=== PATIENT | male | born 1970 | race Two or more races ===

== ENCOUNTER 2017-01-03 19:16 | Inpatient (IN) | payer MEDICAID ==
[~2017-01-03] VITALS: Ht 172.7 cm; Wt 93.5 kg
[~2017-01-03 19:16] MED LIST: HCTZ25T PO; LOPE1TAB9 PO
[2017-01-03 20:58] LABS: Basophils # (auto) 0 uL; Basophils % (auto) 0.3 % (0.0-2.0); Eosinophils # (auto) 0 uL; Eosinophils % (auto) 0.3 % (0.0-7.0); Hematocrit 38.6 % (41.0-53.0); Hemoglobin 13.4 g/dL (13.5-17.5); Lymphocytes # (auto) 0.7 uL; Lymphocytes % (auto) 12.3 % (10.0-50.0); Mean Corpuscular Hgb Conc. 34.8 g/dL (32.0-36.0); Mean Corpuscular Volume 91.9 fL (80.0-100.0); Mean Platelet Volume 7.8 fL (7.4-10.4); Monocytes # (auto) 0.4 uL; Monocytes % (auto) 6.5 % (0.0-12.0); Neutrophils # (auto) 4.4 uL; Neutrophils % (auto) 80.6 % (37.0-80.0); Platelet Count (auto) 113 10^3/uL (140-450); Red Cell Distribution Width 15.5 % (11.6-16.0); White Blood Cell 5.5 10^3/uL (4.4-10.8)
[2017-01-03 21:14] LABS: Partial Thromboplastin Time 27.8 sec (22.64-33.71); Prothrombin Time 12.1 sec (9.37-12.3)
[2017-01-03 21:18] LABS: BUN/Creatinine Ratio 11.3; Bilirubin, Total 1.6 mg/dL (0.2-1.0); Calcium 8.5 mg/dL (8.5-10.1); Magnesium 1.9 mg/dL (1.6-2.6); Potassium 3.5 mmol/L (3.5-5.1); Total Protein 7.2 g/dL (6.4-8.2)
[2017-01-03 21:18] LABS: Urine Bilirubin Negative (Negative); Urine Blood Negative /uL (Negative); Urine Color Yellow (Yellow); Urine Glucose Normal (Normal); Urine Ketone Negative (Negative); Urine Nitrite Negative (Negative); Urine RBC 4 /hpf (0 - 3); Urine Squamous Epithelial Cell FEW /hpf (<5); Urine Urobilinogen Normal (Negative); Urine pH 6.5 (5.0-8.0)
[2017-01-03 21:20] LABS: INR 1.17 (0.9-1.15)
[2017-01-03] MEDS ORDERED: ONDANSETRON HCL 4 MG/2 ML VIAL IV ONE (23:00)
[2017-01-03] MEDS ORDERED: HYDROmorphone HCL 2 MG/ML VL IV ONE (23:00)
[2017-01-03] MEDS ORDERED: SODIUM CHLORIDE 0.9% 1,000 ML IV ONE (23:00)
[2017-01-04] MEDS ORDERED: ONDANSETRON HCL 4 MG/2 ML VIAL IV ONE (01:15)
[2017-01-04] MEDS ORDERED: HYDROmorphone HCL 2 MG/ML VL IV ONE (01:15)
[2017-01-04] MEDS ORDERED: ONDANSETRON HCL 4 MG/2 ML VIAL IV PRN (03:15)
[2017-01-04] MEDS ORDERED: hydrALAZINE HCL 20 MG/ML VL IV PRN (03:15)
[2017-01-04] MEDS ORDERED: MORPHINE SULF INJ 2 MG/ML SYRINGE 1ML IV PRN (03:15)
[2017-01-04 03:50] VITALS: BP 161/96
[2017-01-04] MEDS: SODIUM CHLORIDE 0.9% 1,000 ML IV SCH ×2 (04:48→15:33)
[2017-01-04 05:02] VITALS: BP 161/96
[2017-01-04 09:00] VITALS: BP 155/92
[2017-01-04] MEDS: PANTOPRAZOLE SODIUM 40 MG/10 ML VIAL IV SCH (10:08)
[2017-01-04 12:40] VITALS: BP 158/93
[2017-01-04 16:21] VITALS: BP 149/97
[2017-01-04 21:59] VITALS: BP 138/78
[2017-01-05] MEDS: SODIUM CHLORIDE 0.9% 1,000 ML IV SCH (04:03)
[2017-01-05 05:42] VITALS: BP 146/90
[2017-01-05 06:33] LABS: Basophils # (auto) 0 uL; Basophils % (auto) 0.2 % (0.0-2.0); Eosinophils # (auto) 0 uL; Eosinophils % (auto) 0.8 % (0.0-7.0); Hematocrit 37.6 % (41.0-53.0); Hemoglobin 12.9 g/dL (13.5-17.5); Lymphocytes # (auto) 0.9 uL; Lymphocytes % (auto) 15.4 % (10.0-50.0); Mean Corpuscular Hemoglobin 31.8 pg (28.0-32.0); Mean Corpuscular Hgb Conc. 34.4 g/dL (32.0-36.0); Mean Corpuscular Volume 92.5 fL (80.0-100.0); Mean Platelet Volume 8.1 fL (7.4-10.4); Monocytes # (auto) 0.4 uL; Monocytes % (auto) 6.8 % (0.0-12.0); Neutrophils # (auto) 4.4 uL; Neutrophils % (auto) 76.8 % (37.0-80.0); Platelet Count (auto) 97 10^3/uL (140-450); Red Cell Distribution Width 15.7 % (11.6-16.0); White Blood Cell 5.7 10^3/uL (4.4-10.8)
[2017-01-05 07:09] LABS: Potassium 3.6 mmol/L (3.5-5.1)
[2017-01-05 07:14] LABS: Albumin 2.4 g/dL (3.4-5.0); BUN/Creatinine Ratio 14.5; Calcium 7.7 mg/dL (8.5-10.1)
[2017-01-05 07:16] LABS: Bilirubin, Total 1.7 mg/dL (0.2-1.0); Total Protein 6.1 g/dL (6.4-8.2)
[2017-01-05 09:00] VITALS: BP 153/92
[2017-01-05] MEDS: PANTOPRAZOLE SODIUM 40 MG/10 ML VIAL IV SCH (10:34)
[2017-01-05 13:00] VITALS: BP 147/90
== END 2017-01-05 14:45 | disposition home or self-care (01) | DRG 254 ==
LOC: ER 19:23 → OVERFLOW 19:24 → WEST WING 01-04 03:57
PROVIDERS: ADMIT Nurse Practitioner; ATTEND Internal Medicine
DX: K42.0 Umbilical hernia with obstruction, without gangrene (principal); E43 Unspecified severe protein-calorie malnutrition; K70.31 Alcoholic cirrhosis of liver with ascites; I10 Essential (primary) hypertension; F17.210 Nicotine dependence, cigarettes, uncomplicated; Z79.899 Other long term (current) drug therapy; Z82.49 Family history of ischemic heart disease and other diseases of the circulatory system; Z82.3 Family history of stroke; Z80.0 Family history of malignant neoplasm of digestive organs; Z68.31 Body mass index [BMI] 31.0-31.9, adult; Z72.89 Other problems related to lifestyle
CPT/HCPCS: 36415; 71010; 74176; 80053; 81001; 82150; 83690; 83735; 85025; 85610; 85730; 96361; 96374; 96375; 96376; C9113; J2405

== ENCOUNTER 2019-03-05 18:57 | Inpatient (IN) | payer MEDICAID ==
[~2019-03-05] VITALS: Ht 180.3 cm; Wt 93.4 kg
[~2019-03-05 18:57] MED LIST changes: +FUR20T PO; -HCTZ25T PO; -LOPE1TAB9 PO; +PANT40T PO; +SPIR25TA88 PO
[2019-03-05 19:25] LABS: Basophils # (auto) 0.1 uL; Basophils % (auto) 0.9 % (0.0-2.0); Eosinophils # (auto) 0.1 uL; Eosinophils % (auto) 1.8 % (0.0-7.0); Hematocrit 17.3 % (41.0-53.0); Lymphocytes # (auto) 1.2 uL; Lymphocytes % (auto) 18.4 % (10.0-50.0); Mean Corpuscular Hemoglobin 23.9 pg (28.0-32.0); Mean Corpuscular Volume 77.1 fL (80.0-100.0); Monocytes # (auto) 0.6 uL; Monocytes % (auto) 8.9 % (0.0-12.0); Neutrophils # (auto) 4.6 uL; Nucleated Red Blood Cells % 1.2 %; Platelet Count (auto) 159 10^3/uL (140-450); Red Blood Cells 2.24 10^6/uL (4.5-5.90); White Blood Cell 6.6 10^3/uL (4.4-10.8)
[2019-03-05 19:38] LABS: Hemoglobin 5.4 g/dL (13.5-17.5); Red Cell Distribution Width 27.9 % (11.8-14.3)
[2019-03-05 19:39] LABS: INR 1.13 (0.9-1.15); Partial Thromboplastin Time 23.6 sec (23.78-33.04)
[2019-03-05 19:48] LABS: Albumin 2.4 g/dL (3.4-5.0); Anion Gap 8 (5-15); Blood Urea Nitrogen 19 mg/dL (7-18); Calcium 7.4 mg/dL (8.5-10.1); Carbon Dioxide 24 mmol/L (21-32); Chloride 106 mmol/L (98-107); Glucose 145 mg/dL (74-106); Magnesium 1.9 mg/dL (1.6-2.6); Potassium 3.4 mmol/L (3.5-5.1); Sodium 138 mmol/L (136-145)
[2019-03-05 19:55] LABS: Alanine Aminotransferase 45 U/L (16-61); Alkaline Phosphatase 188 U/L (45-117); Aspartate Aminotransferase 53 U/L (15-37); BUN/Creatinine Ratio 19.6; Bilirubin, Total 0.4 mg/dL (0.2-1.0); GFR African American 105 mL/min; GFR Non-African American 87 mL/min; Total Protein 5.8 g/dL (6.4-8.2)
[2019-03-05] MEDS ORDERED: PANTOPRAZOLE 40 MG/10 ML VIAL INJ IV ONE (21:15)
[2019-03-05] MEDS ORDERED: PANTOPRAZOLE 80 MG in SODIUM CHL 0.9% 60 ML IV ONE (21:15)
[2019-03-06] VITALS (17 sets, daily range): BP systolic 101–127; BP diastolic 46–86
[2019-03-06] MEDS ORDERED: ONDANSETRON HCL 4 MG/2 ML VIAL IV PRN (05:30)
[2019-03-06] MEDS ORDERED: ACETAMINOPHEN 325 MG TAB PO PRN (05:30)
[2019-03-06] MEDS ORDERED: MORPHINE SULF INJ 2 MG/ML SYRINGE 1ML IV PRN (05:30)
[2019-03-06] MEDS ORDERED: OCTREOTIDE ACETATE 100 MCG in SODIUM CHL 0.9% 50 ML IV ONE ×2 (05:45→07:45)
[2019-03-06 07:50] LABS: BUN/Creatinine Ratio 32.4; Calcium 7.6 mg/dL (8.5-10.1)
[2019-03-06] MEDS: OCTREOTIDE ACETATE 500 MCG in SODIUM CHL 0.9% 99 ML IV SCH ×2 (08:15→17:00)
[2019-03-06 10:36] LABS: Basophils # (auto) 0 uL; Basophils % (auto) 0.8 % (0.0-2.0); Eosinophils # (auto) 0 uL; Lymphocytes # (auto) 0.6 uL; Monocytes # (auto) 0.4 uL; Nucleated Red Blood Cells % 0.1 %; Platelet Count (auto) 92 10^3/uL (140-450)
[2019-03-06 10:39] LABS: Hematocrit 19.4 % (41.0-53.0); Lymphocytes % (auto) 13.8 % (10.0-50.0); Mean Corpuscular Hemoglobin 26.6 pg (28.0-32.0); Mean Corpuscular Hgb Conc. 33.3 g/dL (32.0-36.0); Mean Corpuscular Volume 79.7 fL (80.0-100.0); Monocytes % (auto) 8.7 % (0.0-12.0); Neutrophils # (auto) 3.3 uL; Neutrophils % (auto) 75.7 % (37.0-80.0); Red Blood Cells 2.43 10^6/uL (4.5-5.90); White Blood Cell 4.4 10^3/uL (4.4-10.8)
[2019-03-06 10:42] LABS: Red Cell Distribution Width 24.4 % (11.8-14.3)
[2019-03-06 10:43] LABS: Hemoglobin 6.5 g/dL (13.5-17.5)
[2019-03-06 10:55] LABS: Urine Bacteria FEW /hpf (None Seen); Urine Blood 1+ /uL (Negative); Urine WBC 5 /hpf (0 - 3)
[2019-03-06] MEDS ORDERED: SODIUM CHLORIDE LOCK 10 ML ONE (12:31)
[2019-03-06] MEDS ORDERED: diphenhdrAMINE HCL 50 MG/1 ML VL ONE (12:31)
[2019-03-06] MEDS ORDERED: LIDOCAINE VISCOUS 2% 15ML UD ONE (12:31)
[2019-03-06] MEDS ORDERED: GOLYTELY 4L KIT PO ONE (12:45)
[2019-03-06] MEDS: fentaNYL CITRATE 100 MCG/2 ML VL ONE ×3 (13:19→13:27)
[2019-03-06] MEDS: MIDAZOLAM HCL 5 MG/ML-1ML VIAL ONE ×3 (13:19→13:27)
--- NOTE | 2019-03-06 14:23 | NUR ---
I called [facility] discharge nurse Dalila [phone] and left message asking where patient has been going for his portal HTN-awaiting return call. I did note that patient had appointment at [facility] 03/11 for EGD-I faxed higher level of care transfer to [facility] as well as [facility].
--- NOTE | 2019-03-06 14:40 | NUR ---
I spoke with [place] [employer]er Kate, she said that patient has been seen at [place] for his portal HTN.
--- NOTE | 2019-03-06 15:25 | NUR ---
I spoke with the [facility] transfer center, provided them with information for both Dr. Luu and the nurse's station, they are working on the transfer.
--- NOTE | 2019-03-06 15:30 | NUR ---
I spoke with Smitha at [facility] regarding the transfer to higher level of care, she will call me back soon with authorization numbers.
--- NOTE | 2019-03-06 15:38 | NUR ---
I received a call from Smitha at [facility]-auth number for [facility] is [id number], and the authorization for [facility] is [id number] called [facility] transfer center [phone] and provided them with the authorization number.
--- NOTE | 2019-03-06 17:02 | NUR ---
I placed [facility] on will-call pending transfer to [place].
[2019-03-06 21:20] LABS: Basophils # (auto) 0 uL; Hematocrit 20.6 % (41.0-53.0); Lymphocytes # (auto) 0.5 uL; Monocytes # (auto) 0.4 uL; Neutrophils # (auto) 2.4 uL; Nucleated Red Blood Cells % 0.1 %; White Blood Cell 3.4 10^3/uL (4.4-10.8)
[2019-03-06 21:22] LABS: Basophils % (auto) 0.8 % (0.0-2.0); Eosinophils # (auto) 0 uL; Eosinophils % (auto) 1.2 % (0.0-7.0); Lymphocytes % (auto) 15.2 % (10.0-50.0); Mean Corpuscular Hemoglobin 26.5 pg (28.0-32.0); Mean Corpuscular Hgb Conc. 32.8 g/dL (32.0-36.0); Mean Corpuscular Volume 80.6 fL (80.0-100.0); Monocytes % (auto) 12.1 % (0.0-12.0); Neutrophils % (auto) 70.7 % (37.0-80.0); Platelet Count (auto) 84 10^3/uL (140-450); Red Blood Cells 2.56 10^6/uL (4.5-5.90)
[2019-03-06 21:37] LABS: Hemoglobin 6.8 g/dL (13.5-17.5); Red Cell Distribution Width 22.7 % (11.8-14.3)
[2019-03-06] MEDS: PANTOPRAZOLE 40 MG TAB PO SCH (23:07)
[2019-03-06] MEDS ORDERED: FUROSEMIDE 40 MG/4 ML VIAL IV ONE (23:30)
[2019-03-07] VITALS (10 sets, daily range): BP systolic 15–134; BP diastolic 56–84
[2019-03-07 01:05] LABS: INR 1.19 (0.9-1.15); Prothrombin Time 12.6 sec (9.27-12.13)
[2019-03-07 01:10] LABS: % Iron Saturation 3.1 % (20-55)
[2019-03-07] MEDS: OCTREOTIDE ACETATE 500 MCG in SODIUM CHL 0.9% 99 ML IV SCH (01:47)
[2019-03-07 01:58] LABS: Ferritin 20.1 ng/mL (10-322); Folate (Folic Acid) 18.04 ng/mL (5.38-24)
[2019-03-07] MEDS ORDERED: GOLYTELY 4L KIT PO ONE (06:00)
[2019-03-07 07:27] LABS: Basophils # (auto) 0 uL; Basophils % (auto) 0.6 % (0.0-2.0); Eosinophils # (auto) 0.1 uL; Eosinophils % (auto) 1.7 % (0.0-7.0); Hematocrit 26.3 % (41.0-53.0); Hemoglobin 8.8 g/dL (13.5-17.5); Lymphocytes # (auto) 0.4 uL; Lymphocytes % (auto) 14.6 % (10.0-50.0); Mean Corpuscular Hemoglobin 27.5 pg (28.0-32.0); Mean Corpuscular Hgb Conc. 33.4 g/dL (32.0-36.0); Mean Corpuscular Volume 82.2 fL (80.0-100.0); Monocytes # (auto) 0.3 uL; Monocytes % (auto) 10.9 % (0.0-12.0); Neutrophils # (auto) 2.1 uL; Neutrophils % (auto) 72.2 % (37.0-80.0); Nucleated Red Blood Cells % 0.1 %; Platelet Count (auto) 80 10^3/uL (140-450); Red Cell Distribution Width 19.7 % (11.8-14.3)
[2019-03-07 07:42] LABS: Albumin 2.4 g/dL (3.4-5.0); Calcium 7.4 mg/dL (8.5-10.1); Potassium 3.8 mmol/L (3.5-5.1)
[2019-03-07 07:44] LABS: BUN/Creatinine Ratio 21.1
[2019-03-07 07:47] LABS: Bilirubin, Total 1.1 mg/dL (0.2-1.0); Total Protein 5.8 g/dL (6.4-8.2)
[2019-03-07 08:46] LABS: Hepatitis B Surface Antibody Positive
[2019-03-07 09:24] LABS: Hepatitis A Total Antibody Positive
[2019-03-07 09:48] LABS: Hepatitis B Core Total AB Negative
[2019-03-07 09:49] LABS: Hepatitis B Surface Antigen Negative (Negative); Hepatitis C Antibody Negative (Negative)
--- NOTE | 2019-03-07 09:58 | NUR ---
I placed a call to Dr. Luu to discuss the plan of care for this patient-I had received a call form [facility] [phone] asking if patient was still needing to be transferred at this time.
[2019-03-07] MEDS: PANTOPRAZOLE 40 MG TAB PO SCH (10:26)
--- NOTE | 2019-03-07 12:10 | NUR ---
Telemetry admit from ER SUMAYA VANG admitted to Telemetry unit after SBAR received. Patient oriented to LIZZIE hollis RN, unit, room, bed, and unit policies regarding patient care and visiting hours. Patient now on continuous telemetry monitoring, tele box #32 and telemetry reading on arrival to unit is sinus rythym @ 82 bpm. Patient weighed by bedscale and encouraged to call if they need something. Educated the patient on POC. All questions and concerns addressed, patient verbalized understanding. Call light is within reach and bed is in the lowest, locked position. Will round hourly and continue to monitor.
--- NOTE | 2019-03-07 13:21 | NUR ---
I called [facility] [phone] and spoke with Chelo to let her know that Dr. Luu does still want the patient transferred-she will speak with her MD.
--- NOTE | 2019-03-07 15:04 | NUR ---
[facility] AVAILABLE SPOKE WITH [facility] TRANSFER NURSE. STATED PATIENT WILL GO TO UNIT 4100, ROOM 11, BED 2. REPORT TO BE CALLED TO [phone]. ASKED FOR RETURN CALL WITH ESTIMATED [facility] CUTTER TIME [phone], OPTION 2, OPTION 3. WILL INFORM CASE MANAGEMENT.
--- NOTE | 2019-03-07 15:08 | NUR ---
LEFT MESSAGE WITH JUSTIN IN CASE MANAGEMENT INFORMED CASE MANAGEMENT OF PATIENT ACCEPTANCE TO UNIT 4100, ROOM 11, BED 2. ASKED FOR [facility] TRANSFER NURSE TO GET A RETURN CALL WITH TRANSLATOR DEAF TIME AT [phone]. AWAITING CALL BACK.
--- NOTE | 2019-03-07 15:10 | NUR ---
SPOKE WITH MD HINDS- UPDATED ON PATIENT TRANSFER ACCEPTANCE. NO NEW ORDERS.
--- NOTE | 2019-03-07 15:26 | NUR ---
Patient will be going to [facility] unit 4[address] room [address] Stanton, nurse to call report to [phone]-[facility] set to come at 1730 to transport, nurse Caridad made aware. I also let Chelo at the [facility] know that [facility] would be here at 1730 to transport.
--- NOTE | 2019-03-07 16:50 | NUR ---
REPORT CALLED INTO [facility] DOMINIK, [place].
--- NOTE | 2019-03-07 19:59 | NUR ---
pt denied any pain. no distress noted or expressed. pt transport to [facility] via [facility] arrived and pt will be transported via acls guidelines. pt confirmed to have all belongings, no questions from pt at this time. tele box retrieved, cleaned and returned to [facility]. pt stable at time of transfer.
== END 2019-03-07 19:57 | disposition short-term general hospital (02) | DRG 280 ==
LOC: ER 19:04 → TELE 03-06 03:16 → TELE-WESTW 03-07 12:19
PROVIDERS: ADMIT Nurse Practitioner Family; ATTEND Internal Medicine
PROC: 30233N1 Transfusion of Nonautologous Red Blood Cells into Peripheral Vein, Percutaneous Approach (ICD-10-PCS; 2019-03-06)
PROC: 06L38CZ Occlusion of Esophageal Vein with Extraluminal Device, Via Natural or Artificial Opening Endoscopic (ICD-10-PCS; principal; 2019-03-06 13:18)
DX: K70.30 Alcoholic cirrhosis of liver without ascites (principal); I85.11 Secondary esophageal varices with bleeding; J90 Pleural effusion, not elsewhere classified; K76.6 Portal hypertension; E44.0 Moderate protein-calorie malnutrition; I48.91 Unspecified atrial fibrillation; I50.9 Heart failure, unspecified; I11.0 Hypertensive heart disease with heart failure; D50.0 Iron deficiency anemia secondary to blood loss (chronic); F17.210 Nicotine dependence, cigarettes, uncomplicated; E78.5 Hyperlipidemia, unspecified; K21.9 Gastro-esophageal reflux disease without esophagitis; K31.89 Other diseases of stomach and duodenum; K52.9 Noninfective gastroenteritis and colitis, unspecified; Z90.49 Acquired absence of other specified parts of digestive tract; Z85.038 Personal history of other malignant neoplasm of large intestine; Z82.3 Family history of stroke; Z82.49 Family history of ischemic heart disease and other diseases of the circulatory system; Z68.28 Body mass index [BMI] 28.0-28.9, adult
CPT/HCPCS: 36415; 36430; 43244; 71045; 71046; 71250; 74176; 80048; 80053; 80320; 81001; 82140; 82607; 82728; 82746; 83540; 83550; 83605; 83615; 83735; 83880; 84443; 84484; 85025; 85045; 85610; 85730; 86704; 86706; 86708; 86803; 86850; 86900; 86901; 86920; 87340; 93005; 94761; 96365; 96366; A6257; C9113; G0378; J2250

== ENCOUNTER 2022-01-05 10:30 | Outpatient (CLI) | payer MEDICAID ==
[~2022-01-05 10:30] MED LIST changes: +SPIR25TA PO; -SPIR25TA88 PO
== END 2022-01-05 13:28 | disposition home or self-care (01) ==
LOC: XYW 10:30
DX: R18.8 Other ascites (principal); Z82.49 Family history of ischemic heart disease and other diseases of the circulatory system
CPT/HCPCS: 49083; 76700; 76942; 83986; 87205; 89051

== ENCOUNTER → 2022-02-17 | Outpatient (CLI) | payer MEDICAID ==
[~2022-02-17] MED LIST changes: +LIDOCAINE 2%HCL (LOCAL ANESTH.) INJ 10ml MDV ONE
== END | disposition home or self-care (01) ==
LOC: XYW 09:05
PROVIDERS: ATTEND Nurse Practitioner
DX: K70.31 Alcoholic cirrhosis of liver with ascites (principal); N17.9 Acute kidney failure, unspecified; F17.200 Nicotine dependence, unspecified, uncomplicated; Z80.0 Family history of malignant neoplasm of digestive organs; Z82.49 Family history of ischemic heart disease and other diseases of the circulatory system
CPT/HCPCS: 49083; 76700; C1729; C1769; J2001; 76942

== ENCOUNTER 2022-03-29 01:41 | Inpatient (IN) | payer MEDICAID ==
[~2022-03-29] VITALS: Ht 177.8 cm; Wt 75.1 kg
[~2022-03-29 01:41] MED LIST changes: +FERR27TA2 PO; +FURO40TA4 PO; -LIDOCAINE 2%HCL (LOCAL ANESTH.) INJ 10ml MDV ONE
[2022-03-29 03:10] LABS: Basophils # (auto) 0 10 ^3/uL (0-0.2); Eosinophils # (auto) 0 10 ^3/uL (0-0.8); Eosinophils % (auto) 0.6 % (0.0-7.0); Hematocrit 24.4 % (41.0-53.0); Lymphocytes # (auto) 0.4 10 ^3/uL (0.4-5.4); Lymphocytes % (auto) 8.7 % (10.0-50.0); Mean Corpuscular Hemoglobin 24.5 pg (28.0-32.0); Mean Corpuscular Hgb Conc. 32.9 g/dL (32.0-36.0); Mean Corpuscular Volume 74.5 fL (80.0-100.0); Monocytes # (auto) 0.5 10 ^3/uL (0-1.3); Monocytes % (auto) 9.7 % (0.0-12.0); Neutrophils # (auto) 3.8 10 ^3/uL (1.6-8.6); Nucleated Red Blood Cells % 0.1 %; Red Blood Cells 3.28 10^6/uL (4.5-5.90); White Blood Cell 4.7 10^3/uL (4.4-10.8)
[2022-03-29 03:11] LABS: Red Cell Distribution Width 23.8 % (11.8-14.3)
[2022-03-29 03:21] LABS: Albumin 2.8 g/dL (3.4-5.0); Calcium 8.1 mg/dL (8.5-10.1); Potassium 3.7 mmol/L (3.5-5.1)
[2022-03-29 03:27] LABS: Bilirubin, Total 1.1 mg/dL (0.2-1.0); Total Protein 6.3 g/dL (6.4-8.2)
[2022-03-29 03:39] LABS: BUN/Creatinine Ratio 23.2
[2022-03-29] MEDS ORDERED: DOCUSATE SOD 100 MG CAP PO PRN (12:45)
[2022-03-29] MEDS ORDERED: ONDANSETRON HCL 4 MG/2 ML VIAL IV PRN (12:45)
[2022-03-29] MEDS ORDERED: NITROGLYCERIN 0.4 MG SL TAB SL PRN (12:45)
[2022-03-29] MEDS ORDERED: MORPHINE SULFATE INJ 2 MG/ml SYRG IV PRN (12:45)
[2022-03-29] MEDS ORDERED: ACETAMINOPHEN 325 MG TAB PO PRN (12:45)
[2022-03-29 14:15] LABS: INR 1.11 (0.9-1.15); Partial Thromboplastin Time 25.4 sec (23.6-33.0)
[2022-03-30] MEDS: HYDROcodone-ACET 5/325MG TAB PO PRN (01:54)
[2022-03-30] MEDS ORDERED: ALBUMIN 25% 100 ML IV ONE (10:00)
[2022-03-30] MEDS ORDERED: ALBUMIN 25% 100 ML IV SCH ×2 (11:00→17:00)
[2022-03-30 12:19] LABS: Basophils # (auto) 0 10 ^3/uL (0-0.2); Eosinophils # (auto) 0 10 ^3/uL (0-0.8); Hematocrit 22.8 % (41.0-53.0); Lymphocytes # (auto) 0.3 10 ^3/uL (0.4-5.4); Monocytes # (auto) 0.2 10 ^3/uL (0-1.3); Monocytes % (auto) 8.7 % (0.0-12.0); Neutrophils # (auto) 1.9 10 ^3/uL (1.6-8.6)
[2022-03-30 12:23] LABS: Basophils % (auto) 1.3 % (0.0-2.0); Lymphocytes % (auto) 11.7 % (10.0-50.0); Mean Corpuscular Hemoglobin 25.7 pg (28.0-32.0); Mean Corpuscular Hgb Conc. 33.7 g/dL (32.0-36.0); Mean Corpuscular Volume 76.1 fL (80.0-100.0); Neutrophils % (auto) 77.3 % (37.0-80.0); Nucleated Red Blood Cells % 0.1 %; White Blood Cell 2.4 10^3/uL (4.4-10.8)
[2022-03-30 12:48] LABS: Hemoglobin 7.7 g/dL (13.5-17.5); Red Cell Distribution Width 23.6 % (11.8-14.3)
[2022-03-30 12:54] LABS: Albumin 2.6 g/dL (3.4-5.0); Potassium 3.2 mmol/L (3.5-5.1)
[2022-03-30 13:00] VITALS: BP 121/77
[2022-03-30 13:06] LABS: BUN/Creatinine Ratio 25.9; Bilirubin, Total 1.2 mg/dL (0.2-1.0); Total Protein 5.7 g/dL (6.4-8.2)
[2022-03-30 17:00] VITALS: BP 90/58
[2022-03-30 22:00] VITALS: BP 90/66
[2022-03-30] MEDS: FUROSEMIDE 40 MG TAB PO SCH (22:13)
[2022-03-31 05:00] VITALS: BP 94/59
[2022-03-31 07:10] LABS: Basophils # (auto) 0 10 ^3/uL (0-0.2); Basophils % (auto) 0.9 % (0.0-2.0); Eosinophils # (auto) 0 10 ^3/uL (0-0.8); Eosinophils % (auto) 0.8 % (0.0-7.0); Neutrophils # (auto) 1.8 10 ^3/uL (1.6-8.6); White Blood Cell 2.3 10^3/uL (4.4-10.8)
[2022-03-31 07:12] LABS: Hematocrit 21.2 % (41.0-53.0); Hemoglobin 7.2 g/dL (13.5-17.5); Lymphocytes # (auto) 0.3 10 ^3/uL (0.4-5.4); Lymphocytes % (auto) 11.2 % (10.0-50.0); Mean Corpuscular Hemoglobin 25.4 pg (28.0-32.0); Mean Corpuscular Hgb Conc. 33.8 g/dL (32.0-36.0); Monocytes # (auto) 0.2 10 ^3/uL (0-1.3); Monocytes % (auto) 10.6 % (0.0-12.0); Neutrophils % (auto) 76.5 % (37.0-80.0); Red Blood Cells 2.81 10^6/uL (4.5-5.90)
[2022-03-31 07:22] LABS: Mean Corpuscular Volume 75.2 fL (80.0-100.0); Red Cell Distribution Width 23.1 % (11.8-14.3)
[2022-03-31 07:41] LABS: BUN/Creatinine Ratio 26.3; Calcium 8.2 mg/dL (8.5-10.1); Potassium 3.5 mmol/L (3.5-5.1)
[2022-03-31 07:43] LABS: Bilirubin, Total 1.3 mg/dL (0.2-1.0); Total Protein 5.6 g/dL (6.4-8.2)
[2022-03-31 08:59] VITALS: BP 100/64
[2022-03-31] MEDS: SPIRONOLACTONE 25 MG TAB PO SCH (11:33)
[2022-03-31] MEDS: FUROSEMIDE 40 MG TAB PO SCH ×2 (11:33→21:42)
[2022-03-31] MEDS: PANTOPRAZOLE 40 MG TAB PO SCH (11:34)
[2022-03-31 12:53] VITALS: BP 93/63
[2022-03-31 16:34] VITALS: BP 94/68
[2022-03-31] MEDS: HYDROcodone-ACET 5/325MG TAB PO PRN (21:25)
[2022-03-31] MEDS: LACTULOSE 20Gm/30ML SOLN PO SCH (21:26)
[2022-03-31 22:00] VITALS: BP 100/68
[2022-04-01 05:00] VITALS: BP 105/72
[2022-04-01 09:00] VITALS: BP 112/77
[2022-04-01] MEDS: ALBUMIN 25% 50 ML IV SCH ×2 (09:00→14:37)
[2022-04-01] MEDS: LACTULOSE 20Gm/30ML SOLN PO SCH ×2 (10:18→22:01)
[2022-04-01] MEDS: SPIRONOLACTONE 25 MG TAB PO SCH (10:19)
[2022-04-01] MEDS: PANTOPRAZOLE 40 MG TAB PO SCH (10:19)
[2022-04-01 13:00] VITALS: BP 102/73
[2022-04-01 17:00] VITALS: BP 112/74
[2022-04-01] MEDS: BUMETANIDE 1 MG TAB PO SCH (18:00)
[2022-04-01 21:40] VITALS: BP 101/71
[2022-04-02] MEDS: ALBUMIN 25% 50 ML IV SCH ×3 (00:46→09:36)
[2022-04-02 05:00] VITALS: BP 99/71
[2022-04-02] MEDS: BUMETANIDE 1 MG TAB PO SCH ×2 (05:32→18:05)
[2022-04-02 06:29] LABS: Basophils # (auto) 0 10 ^3/uL (0-0.2); Basophils % (auto) 0.6 % (0.0-2.0); Eosinophils # (auto) 0 10 ^3/uL (0-0.8); Eosinophils % (auto) 0.6 % (0.0-7.0); Hematocrit 22.6 % (41.0-53.0); Hemoglobin 7.8 g/dL (13.5-17.5); Lymphocytes # (auto) 0.4 10 ^3/uL (0.4-5.4); Lymphocytes % (auto) 12.9 % (10.0-50.0); Mean Corpuscular Hemoglobin 25.8 pg (28.0-32.0); Mean Corpuscular Hgb Conc. 34.6 g/dL (32.0-36.0); Mean Corpuscular Volume 74.5 fL (80.0-100.0); Monocytes # (auto) 0.3 10 ^3/uL (0-1.3); Monocytes % (auto) 11.4 % (0.0-12.0); Neutrophils # (auto) 2.1 10 ^3/uL (1.6-8.6); Neutrophils % (auto) 74.5 % (37.0-80.0); Red Blood Cells 3.04 10^6/uL (4.5-5.90); White Blood Cell 2.9 10^3/uL (4.4-10.8)
[2022-04-02 06:41] LABS: Potassium 3.6 mmol/L (3.5-5.1)
[2022-04-02 06:43] LABS: BUN/Creatinine Ratio 21.7; Calcium 8.8 mg/dL (8.5-10.1)
[2022-04-02 09:00] VITALS: BP 100/74
[2022-04-02] MEDS: PANTOPRAZOLE 40 MG TAB PO SCH (09:35)
[2022-04-02] MEDS: LACTULOSE 20Gm/30ML SOLN PO SCH (09:35)
[2022-04-02] MEDS: SPIRONOLACTONE 25 MG TAB PO SCH (09:35)
[2022-04-02 13:00] VITALS: BP 99/69
[2022-04-02 17:00] VITALS: BP 113/82
== END 2022-04-02 18:52 | disposition left against medical advice (07) | DRG 280 ==
LOC: ER 01:41 → TELE 12:36 → TELE-WESTW 03-30 08:54
PROVIDERS: ADMIT Nurse Practitioner; ATTEND Nurse Practitioner
PROC: 0W9G3ZZ Drainage of Peritoneal Cavity, Percutaneous Approach (ICD-10-PCS; principal; 2022-03-30)
DX: K70.31 Alcoholic cirrhosis of liver with ascites (principal); K76.7 Hepatorenal syndrome; K72.90 Hepatic failure, unspecified without coma; N17.9 Acute kidney failure, unspecified; D61.818 Other pancytopenia; E44.0 Moderate protein-calorie malnutrition; N18.4 Chronic kidney disease, stage 4 (severe); D63.8 Anemia in other chronic diseases classified elsewhere; E87.1 Hypo-osmolality and hyponatremia; E87.6 Hypokalemia; Z53.29 Procedure and treatment not carried out because of patient's decision for other reasons; F17.210 Nicotine dependence, cigarettes, uncomplicated; Z20.822 Contact with and (suspected) exposure to COVID-19; E11.22 Type 2 diabetes mellitus with diabetic chronic kidney disease; I50.9 Heart failure, unspecified; Z68.23 Body mass index [BMI] 23.0-23.9, adult; Z79.899 Other long term (current) drug therapy; Z80.0 Family history of malignant neoplasm of digestive organs; Z82.3 Family history of stroke; Z82.49 Family history of ischemic heart disease and other diseases of the circulatory system
CPT/HCPCS: 36415; 76705; 76942; 80048; 80053; 82140; 83615; 83986; 85025; 85610; 85730; 87205; 89051; G0378; P9047

== ENCOUNTER 2022-04-13 13:17 | Inpatient (IN) | payer MEDICAID ==
[2022-04-13] VITALS (9 sets, daily range): BP systolic 108–121; BP diastolic 76–84
[~2022-04-13] VITALS: Ht 175.3 cm; Wt 64.1 kg
[~2022-04-13 13:17] MED LIST changes: -IOHEXOL 300 MG/ML 100ML BOTTLE IJ ONE; -LACT10SO3 PO; -LIDOCAINE 2%HCL (LOCAL ANESTH.) INJ 10ml MDV ONE; -RIFA550T PO
[2022-04-13] MEDS ORDERED: SODIUM CHLORIDE 0.9% 500 ML IVB ONE (13:45)
[2022-04-13] MEDS ORDERED: SODIUM CHLORIDE 0.9% 1,000 ML IV ONE (13:45)
[2022-04-13 14:19] LABS: Mean Corpuscular Hemoglobin 24.9 pg (28.0-32.0)
[2022-04-13 14:21] LABS: Hematocrit 19.9 % (41.0-53.0); Mean Corpuscular Hgb Conc. 33.5 g/dL (32.0-36.0); Mean Corpuscular Volume 74.5 fL (80.0-100.0); Red Blood Cells 2.67 10^6/uL (4.5-5.90); White Blood Cell 4.4 10^3/uL (4.4-10.8)
[2022-04-13 14:29] LABS: Hemoglobin 6.7 g/dL (13.5-17.5); Red Cell Distribution Width 20.8 % (11.8-14.3)
[2022-04-13 14:32] LABS: Band Neutrophils % (manual) 0; Basophils % (manual) 0 (0.0-2.0); Blast Cells 0; Eosinophils % (manual) 0 (0-7); Metamyelocytes % 0; Myelocytes % 0; Promyelocytes % 0; Reactive Lymphocytes 0
[2022-04-13 14:35] LABS: INR 1.18 (0.9-1.15); Partial Thromboplastin Time 25.2 sec (23.6-33.0)
[2022-04-13 15:23] LABS: Potassium 4.5 mmol/L (3.5-5.1); Sodium 125 mmol/L (136-145)
[2022-04-13 15:24] LABS: Alanine Aminotransferase 28 U/L (16-61); Albumin 3.6 g/dL (3.4-5.0); Alkaline Phosphatase 240 U/L (45-117); Anion Gap 13 (5-15); Aspartate Aminotransferase 23 U/L (15-37); BUN/Creatinine Ratio 21.9; Bilirubin, Total 1.3 mg/dL (0.2-1.0); Calcium 8.4 mg/dL (8.5-10.1); Carbon Dioxide 16 mmol/L (21-32); Chloride 96 mmol/L (98-107); GFR African American 13 mL/min; GFR Non-African American 11 mL/min; Glucose 131 mg/dL (74-106); Lipase 122 U/L (73-393); Magnesium 2.9 mg/dL (1.6-2.6); Total Protein 6.2 g/dL (6.4-8.2)
[2022-04-13 15:26] LABS: Blood Urea Nitrogen 127 mg/dL (7-18)
[2022-04-13] MEDS ORDERED: LACTULOSE 20Gm/30ML SOLN PO ONE (16:00)
[2022-04-13] MEDS ORDERED: DOCUSATE SOD 100 MG CAP PO PRN (16:15)
[2022-04-13] MEDS ORDERED: MORPHINE SULFATE INJ 2 MG/ml SYRG IV PRN ×2 (16:15→16:30)
[2022-04-13] MEDS ORDERED: NITROGLYCERIN 0.4 MG SL TAB SL PRN (16:30)
[2022-04-13 16:41] LABS: Urine Bacteria FEW /hpf (None Seen); Urine Blood Negative /uL (Negative); Urine Hyaline Cast FEW /lpf (0 - 2); Urine Specific Gravity 1.014 (1.001-1.035); Urine WBC 11 /hpf (0 - 3)
[2022-04-13 17:03] LABS: Lymphocytes % (manual) 12 (10.0-50.0); Monocytes % (manual) 4 (0-12)
[2022-04-13] MEDS ORDERED: FUROSEMIDE 40 MG TAB PO SCH (22:00)
[2022-04-13] MEDS: LACTULOSE 20Gm/30ML SOLN PO SCH (22:00)
[2022-04-14 05:00] VITALS: BP 115/73
[2022-04-14 05:54] LABS: Albumin 3.4 g/dL (3.4-5.0); BUN/Creatinine Ratio 23.3; Calcium 8.7 mg/dL (8.5-10.1); Potassium 4.3 mmol/L (3.5-5.1)
[2022-04-14 05:56] LABS: Hemoglobin 8.3 g/dL (13.5-17.5); Mean Corpuscular Hgb Conc. 33.5 g/dL (32.0-36.0); Red Blood Cells 3.19 10^6/uL (4.5-5.90)
[2022-04-14 06:00] LABS: Hematocrit 24.8 % (41.0-53.0); Mean Corpuscular Volume 77.6 fL (80.0-100.0); Red Cell Distribution Width 19.5 % (11.8-14.3); White Blood Cell 4.3 10^3/uL (4.4-10.8)
[2022-04-14 06:02] LABS: Bilirubin, Total 2.3 mg/dL (0.2-1.0); Total Protein 5.7 g/dL (6.4-8.2)
[2022-04-14 06:11] LABS: Basophils % (manual) 0 (0.0-2.0); Blast Cells 0; Metamyelocytes % 0; Myelocytes % 0; Promyelocytes % 0; Reactive Lymphocytes 0
[2022-04-14 07:54] LABS: Band Neutrophils % (manual) 3; Eosinophils % (manual) 1 (0-7); Lymphocytes % (manual) 10 (10.0-50.0); Monocytes % (manual) 8 (0-12)
[2022-04-14 09:00] VITALS: BP 108/76
[2022-04-14] MEDS: PANTOPRAZOLE 40 MG TAB PO SCH (09:06)
[2022-04-14] MEDS: FUROSEMIDE 20 MG TAB PO SCH (09:07)
[2022-04-14] MEDS: LACTULOSE 20Gm/30ML SOLN PO SCH ×2 (09:07→21:40)
[2022-04-14] MEDS: SPIRONOLACTONE 25 MG TAB PO SCH (09:08)
[2022-04-14] MEDS: FERROUS SULFATE 325mg EC TAB PO SCH (09:08)
[2022-04-14] MEDS: ONDANSETRON HCL 4 MG/2 ML VIAL IV PRN (12:37)
[2022-04-14 13:00] VITALS: BP 99/72
[2022-04-14 17:23] VITALS: BP 103/74
[2022-04-14] MEDS: HYDROcodone-ACET 5/325MG TAB PO PRN (21:51)
[2022-04-14 22:00] VITALS: BP 110/75
[2022-04-15] MEDS: ONDANSETRON HCL 4 MG/2 ML VIAL IV PRN (02:48)
[2022-04-15 05:00] VITALS: BP 115/82
[2022-04-15 06:29] LABS: BUN/Creatinine Ratio 22.9; Calcium 8.5 mg/dL (8.5-10.1); Potassium 4.3 mmol/L (3.5-5.1)
[2022-04-15 09:00] VITALS: BP 115/84
[2022-04-15] MEDS: FERROUS SULFATE 325mg EC TAB PO SCH (09:51)
[2022-04-15] MEDS: PANTOPRAZOLE 40 MG TAB PO SCH (09:51)
[2022-04-15] MEDS: FUROSEMIDE 20 MG TAB PO SCH (09:52)
[2022-04-15] MEDS: SPIRONOLACTONE 25 MG TAB PO SCH (09:52)
[2022-04-15] MEDS: LACTULOSE 20Gm/30ML SOLN PO SCH ×3 (12:00→22:16)
[2022-04-15] MEDS ORDERED: LIDOCAINE 2% (LOCAL ANESTH.) PF 5ml SDV ONE (12:56)
[2022-04-15 13:00] VITALS: BP 112/78
[2022-04-15] MEDS ORDERED: HEPARIN SODIUM (PORCINE) 5000 UNITS/ML 1ML VIAL ONE (13:26)
[2022-04-15] MEDS ORDERED: ALBUMIN 25% 100 ML IV ONE (14:15)
[2022-04-15] MEDS: ALBUMIN 25% 100 ML IV SCH ×2 (16:15→18:43)
[2022-04-15 17:00] VITALS: BP 118/78
[2022-04-15 21:56] VITALS: BP 111/74
[2022-04-15] MEDS: rifAXIMin 550 MG TAB PO SCH (22:16)
[2022-04-15] MEDS: HYDROcodone-ACET 5/325MG TAB PO PRN (22:16)
[2022-04-16 05:06] VITALS: BP 95/57
[2022-04-16] MEDS: LACTULOSE 20Gm/30ML SOLN PO SCH ×4 (05:49→21:19)
[2022-04-16 09:01] VITALS: BP 104/70
[2022-04-16] MEDS: FUROSEMIDE 20 MG TAB PO SCH (09:58)
[2022-04-16] MEDS: SPIRONOLACTONE 25 MG TAB PO SCH (09:59)
[2022-04-16] MEDS: PANTOPRAZOLE 40 MG TAB PO SCH (10:07)
[2022-04-16] MEDS: rifAXIMin 550 MG TAB PO SCH ×2 (10:07→21:16)
[2022-04-16] MEDS: FERROUS SULFATE 325mg EC TAB PO SCH (10:07)
[2022-04-16 13:00] VITALS: BP 107/73
[2022-04-16 17:00] VITALS: BP 91/69
[2022-04-16] MEDS: HYDROcodone-ACET 5/325MG TAB PO PRN (21:16)
[2022-04-16 22:00] VITALS: BP 97/69
[2022-04-17 05:00] VITALS: BP 97/70
[2022-04-17] MEDS: LACTULOSE 20Gm/30ML SOLN PO SCH ×4 (06:50→21:04)
[2022-04-17] MEDS: PANTOPRAZOLE 40 MG TAB PO SCH (08:49)
[2022-04-17] MEDS: rifAXIMin 550 MG TAB PO SCH ×2 (08:49→21:04)
[2022-04-17] MEDS: FUROSEMIDE 20 MG TAB PO SCH (08:50)
[2022-04-17] MEDS: SPIRONOLACTONE 25 MG TAB PO SCH (08:50)
[2022-04-17] MEDS: FERROUS SULFATE 325mg EC TAB PO SCH (08:50)
[2022-04-17 09:00] VITALS: BP 109/80
[2022-04-17 13:00] VITALS: BP_SYST 100; BP_SYST 141; BP_DIAS 81; BP_DIAS 97
[2022-04-17 13:12] LABS: Potassium 3.5 mmol/L (3.5-5.1)
[2022-04-17 13:13] LABS: BUN/Creatinine Ratio 15.9; Calcium 8.2 mg/dL (8.5-10.1)
[2022-04-17 17:00] VITALS: BP 150/101
[2022-04-17] MEDS: HYDROcodone-ACET 5/325MG TAB PO PRN (21:05)
[2022-04-17] MEDS: ONDANSETRON HCL 4 MG/2 ML VIAL IV PRN (21:13)
[2022-04-17 22:00] VITALS: BP 109/79
[2022-04-18 05:00] VITALS: BP 110/74
[2022-04-18] MEDS: LACTULOSE 20Gm/30ML SOLN PO SCH ×4 (05:35→21:21)
[2022-04-18] MEDS ORDERED: SODIUM CHL 0.9% 1000 ML BAG XX ONE (07:00)
[2022-04-18 09:00] VITALS: BP 106/76
[2022-04-18] MEDS: SPIRONOLACTONE 25 MG TAB PO SCH (10:00)
[2022-04-18] MEDS: FERROUS SULFATE 325mg EC TAB PO SCH (10:00)
[2022-04-18] MEDS: FUROSEMIDE 20 MG TAB PO SCH (10:00)
[2022-04-18] MEDS: PANTOPRAZOLE 40 MG TAB PO SCH (11:50)
[2022-04-18] MEDS: rifAXIMin 550 MG TAB PO SCH ×2 (11:50→21:21)
[2022-04-18 13:00] VITALS: BP 108/78
[2022-04-18 16:18] LABS: Albumin 3.5 g/dL (3.4-5.0); Bilirubin, Direct 1.3 mg/dL (0-0.2)
[2022-04-18 16:21] LABS: Bilirubin, Total 2.8 mg/dL (0.2-1.0)
[2022-04-18 17:00] VITALS: BP 115/81
[2022-04-18] MEDS: HYDROcodone-ACET 5/325MG TAB PO PRN (21:22)
[2022-04-18 22:00] VITALS: BP 116/71
[2022-04-19 04:53] VITALS: BP 96/65
[2022-04-19] MEDS: LACTULOSE 20Gm/30ML SOLN PO SCH ×4 (05:58→22:05)
[2022-04-19] MEDS: rifAXIMin 550 MG TAB PO SCH ×2 (08:46→22:05)
[2022-04-19] MEDS: FERROUS SULFATE 325mg EC TAB PO SCH (08:48)
[2022-04-19] MEDS: FUROSEMIDE 20 MG TAB PO SCH (08:48)
[2022-04-19] MEDS: PANTOPRAZOLE 40 MG TAB PO SCH (08:49)
[2022-04-19] MEDS: SPIRONOLACTONE 25 MG TAB PO SCH (08:49)
[2022-04-19 17:00] VITALS: BP 109/70
[2022-04-19] MEDS: ONDANSETRON HCL 4 MG/2 ML VIAL IV PRN (21:06)
[2022-04-19 22:00] VITALS: BP 121/86
[2022-04-19] MEDS: HYDROcodone-ACET 5/325MG TAB PO PRN (22:57)
[2022-04-20 05:00] VITALS: BP 117/80
[2022-04-20] MEDS: LACTULOSE 20Gm/30ML SOLN PO SCH ×4 (06:13→21:30)
[2022-04-20] MEDS ORDERED: SODIUM CHL 0.9% 1000 ML BAG XX ONE (07:00)
[2022-04-20 07:22] LABS: Hematocrit 29.9 % (41.0-53.0)
[2022-04-20 09:00] VITALS: BP 114/81
[2022-04-20] MEDS: FERROUS SULFATE 325mg EC TAB PO SCH (09:38)
[2022-04-20] MEDS: SPIRONOLACTONE 25 MG TAB PO SCH (09:39)
[2022-04-20] MEDS: PANTOPRAZOLE 40 MG TAB PO SCH (09:42)
[2022-04-20] MEDS: FUROSEMIDE 20 MG TAB PO SCH (09:42)
[2022-04-20] MEDS: rifAXIMin 550 MG TAB PO SCH ×2 (09:47→21:30)
[2022-04-20 11:53] LABS: Basophils # (auto) 0 10 ^3/uL (0-0.2); Basophils % (auto) 0.2 % (0.0-2.0); Eosinophils # (auto) 0 10 ^3/uL (0-0.8); Eosinophils % (auto) 0.1 % (0.0-7.0); Hematocrit 28.9 % (41.0-53.0); Hemoglobin 10.3 g/dL (13.5-17.5); Lymphocytes # (auto) 0.5 10 ^3/uL (0.4-5.4); Lymphocytes % (auto) 5.4 % (10.0-50.0); Mean Corpuscular Hemoglobin 27.8 pg (28.0-32.0); Mean Corpuscular Hgb Conc. 35.5 g/dL (32.0-36.0); Mean Corpuscular Volume 78.5 fL (80.0-100.0); Monocytes # (auto) 0.6 10 ^3/uL (0-1.3); Monocytes % (auto) 6.7 % (0.0-12.0); Neutrophils # (auto) 7.4 10 ^3/uL (1.6-8.6); Neutrophils % (auto) 87.6 % (37.0-80.0); Red Blood Cells 3.69 10^6/uL (4.5-5.90); Red Cell Distribution Width 19.9 % (11.8-14.3); White Blood Cell 8.5 10^3/uL (4.4-10.8)
[2022-04-20 11:54] LABS: INR 1.12 (0.9-1.15); Partial Thromboplastin Time 27.2 sec (23.6-33.0)
[2022-04-20 13:00] VITALS: BP 115/78
[2022-04-20 16:42] VITALS: BP 105/68
[2022-04-20] MEDS ORDERED: EPOETIN ALFA-EPBX 4,000 UNIT/ML VIAL SC ONE (21:00)
[2022-04-20 22:00] VITALS: BP_SYST 103; BP_DIAS 1; BP_DIAS 71
[2022-04-21 05:00] VITALS: BP 104/74
[2022-04-21] MEDS: LACTULOSE 20Gm/30ML SOLN PO SCH ×4 (05:38→21:22)
[2022-04-21 09:00] VITALS: BP 107/74
[2022-04-21 10:54] LABS: Hepatitis B Surface Antibody Negative (Negative)
[2022-04-21] MEDS: FERROUS SULFATE 325mg EC TAB PO SCH (11:13)
[2022-04-21] MEDS: rifAXIMin 550 MG TAB PO SCH ×2 (11:15→21:22)
[2022-04-21] MEDS: FUROSEMIDE 20 MG TAB PO SCH (11:17)
[2022-04-21] MEDS: PANTOPRAZOLE 40 MG TAB PO SCH (11:18)
[2022-04-21] MEDS: SPIRONOLACTONE 25 MG TAB PO SCH (11:19)
[2022-04-21 11:33] LABS: Hepatitis A Total Antibody Positive (Negative)
[2022-04-21] MEDS ORDERED: fentaNYL CITRATE 100 MCG/2 ML VL ONE (13:59)
[2022-04-21] MEDS ORDERED: HEPARIN SODIUM (PORCINE) 5000 UNITS/ML 1ML VIAL ONE (13:59)
[2022-04-21] MEDS ORDERED: MIDAZOLAM HCL 2MG/2ML 2ml VIAL (1mg/ml) ONE (13:59)
[2022-04-21] MEDS ORDERED: LIDOCAINE 2%HCL (LOCAL ANESTH.) INJ 10ml MDV ONE (14:15)
[2022-04-21 14:40] VITALS: BP 101/74
[2022-04-21 14:55] VITALS: BP 110/77
[2022-04-21 15:00] VITALS: BP 110/73
[2022-04-21 15:56] LABS: Hepatitis C Antibody Negative (Negative)
[2022-04-21] MEDS ORDERED: LACT10SO3 PO (19:40)
[2022-04-21] MEDS ORDERED: RIFA550T PO (19:40)
[2022-04-21 22:59] VITALS: BP 108/76
[2022-04-22 05:20] VITALS: BP 101/66
[2022-04-22] MEDS: LACTULOSE 20Gm/30ML SOLN PO SCH ×4 (06:00→21:16)
[2022-04-22] MEDS ORDERED: SODIUM CHL 0.9% 1000 ML BAG XX ONE (07:00)
[2022-04-22 08:27] LABS: Hemoglobin 10.6 g/dL (13.5-17.5)
[2022-04-22 08:29] LABS: Hematocrit 32.1 % (41.0-53.0)
[2022-04-22 08:37] LABS: % Iron Saturation 23.9 % (20-55)
[2022-04-22 09:38] VITALS: BP 111/76
[2022-04-22] MEDS: rifAXIMin 550 MG TAB PO SCH ×2 (11:01→21:16)
[2022-04-22] MEDS: FERROUS SULFATE 325mg EC TAB PO SCH (11:02)
[2022-04-22] MEDS: SPIRONOLACTONE 25 MG TAB PO SCH (11:02)
[2022-04-22] MEDS: PANTOPRAZOLE 40 MG TAB PO SCH (11:02)
[2022-04-22] MEDS: FUROSEMIDE 20 MG TAB PO SCH (11:03)
[2022-04-22 12:56] VITALS: BP 102/72
[2022-04-22 17:12] VITALS: BP 103/70
[2022-04-22] MEDS ORDERED: EPOETIN ALFA-EPBX 10,000 UNIT/1ML VIAL SC ONE (21:00)
[2022-04-22 22:00] VITALS: BP 112/74
[2022-04-23 05:00] VITALS: BP 100/66
[2022-04-23] MEDS: LACTULOSE 20Gm/30ML SOLN PO SCH ×4 (06:24→22:06)
[2022-04-23 09:00] VITALS: BP 113/77
[2022-04-23] MEDS: FERROUS SULFATE 325mg EC TAB PO SCH (10:00)
[2022-04-23] MEDS: SPIRONOLACTONE 25 MG TAB PO SCH (11:53)
[2022-04-23] MEDS: PANTOPRAZOLE 40 MG TAB PO SCH (11:54)
[2022-04-23] MEDS: FUROSEMIDE 20 MG TAB PO SCH (11:54)
[2022-04-23] MEDS: rifAXIMin 550 MG TAB PO SCH ×2 (11:55→22:06)
[2022-04-23 13:00] VITALS: BP 112/73
[2022-04-23 17:00] VITALS: BP 104/73
[2022-04-23 21:41] VITALS: BP 109/78
[2022-04-24 04:54] VITALS: BP 99/69
[2022-04-24] MEDS: LACTULOSE 20Gm/30ML SOLN PO SCH ×4 (05:56→21:58)
[2022-04-24 09:00] VITALS: BP 100/66
[2022-04-24] MEDS: PANTOPRAZOLE 40 MG TAB PO SCH (09:19)
[2022-04-24] MEDS: rifAXIMin 550 MG TAB PO SCH ×2 (09:19→21:58)
[2022-04-24] MEDS: FERROUS SULFATE 325mg EC TAB PO SCH (09:20)
[2022-04-24] MEDS: SPIRONOLACTONE 25 MG TAB PO SCH (09:20)
[2022-04-24] MEDS: FUROSEMIDE 20 MG TAB PO SCH (09:30)
[2022-04-24 13:00] VITALS: BP 101/70
[2022-04-24] MEDS: ONDANSETRON HCL 4 MG/2 ML VIAL IV PRN ×2 (16:25→21:58)
[2022-04-24 17:00] VITALS: BP 92/63
[2022-04-24 22:00] VITALS: BP 103/62
[2022-04-25 05:00] VITALS: BP 94/53
[2022-04-25] MEDS: ONDANSETRON HCL 4 MG/2 ML VIAL IV PRN (08:17)
[2022-04-25 08:48] VITALS: BP 86/57
[2022-04-25] MEDS: PANTOPRAZOLE 40 MG TAB PO SCH (09:34)
[2022-04-25] MEDS: rifAXIMin 550 MG TAB PO SCH (09:34)
[2022-04-25] MEDS: FERROUS SULFATE 325mg EC TAB PO SCH (09:34)
[2022-04-25] MEDS: SPIRONOLACTONE 25 MG TAB PO SCH (09:46)
[2022-04-25] MEDS: FUROSEMIDE 20 MG TAB PO SCH (10:00)
[2022-04-25] MEDS: LACTULOSE 20Gm/30ML SOLN PO SCH (10:00)
[2022-04-25] MEDS: ALBUMIN 25% 100 ML IV SCH ×2 (13:00→14:05)
[2022-04-25 13:24] VITALS: BP 87/57
[2022-04-25 17:00] VITALS: BP 87/54
== END 2022-04-25 18:38 | disposition home health service (06) | DRG 280 ==
LOC: ER 13:17 → TELE 16:18 → TELE-WESTW 21:58
PROVIDERS: ADMIT Nurse Practitioner; ATTEND Nurse Practitioner
PROC: 30233N1 Transfusion of Nonautologous Red Blood Cells into Peripheral Vein, Percutaneous Approach (ICD-10-PCS; 2022-04-13)
PROC: 0W9G3ZZ Drainage of Peritoneal Cavity, Percutaneous Approach (ICD-10-PCS; 2022-04-15)
PROC: 02HV33Z Insertion of Infusion Device into Superior Vena Cava, Percutaneous Approach (ICD-10-PCS; 2022-04-15)
PROC: 5A1D70Z Performance of Urinary Filtration, Intermittent, Less than 6 Hours Per Day (ICD-10-PCS; 2022-04-16)
PROC: 5A1D70Z Performance of Urinary Filtration, Intermittent, Less than 6 Hours Per Day (ICD-10-PCS; 2022-04-18)
PROC: 5A1D70Z Performance of Urinary Filtration, Intermittent, Less than 6 Hours Per Day (ICD-10-PCS; 2022-04-20)
PROC: 0JH63XZ Insertion of Tunneled Vascular Access Device into Chest Subcutaneous Tissue and Fascia, Percutaneous Approach (ICD-10-PCS; principal; 2022-04-21)
PROC: 0W9G3ZZ Drainage of Peritoneal Cavity, Percutaneous Approach (ICD-10-PCS; 2022-04-21)
PROC: 02H633Z Insertion of Infusion Device into Right Atrium, Percutaneous Approach (ICD-10-PCS; 2022-04-21)
PROC: B5181ZA Fluoroscopy of Superior Vena Cava using Low Osmolar Contrast, Guidance (ICD-10-PCS; 2022-04-21)
PROC: 5A1D70Z Performance of Urinary Filtration, Intermittent, Less than 6 Hours Per Day (ICD-10-PCS; 2022-04-22)
PROC: 5A1D70Z Performance of Urinary Filtration, Intermittent, Less than 6 Hours Per Day (ICD-10-PCS; 2022-04-25)
DX: K70.31 Alcoholic cirrhosis of liver with ascites (principal); K72.90 Hepatic failure, unspecified without coma; N17.9 Acute kidney failure, unspecified; E43 Unspecified severe protein-calorie malnutrition; D69.6 Thrombocytopenia, unspecified; N18.6 End stage renal disease; C22.8 Malignant neoplasm of liver, primary, unspecified as to type; D63.8 Anemia in other chronic diseases classified elsewhere; I95.9 Hypotension, unspecified; B19.20 Unspecified viral hepatitis C without hepatic coma; D49.0 Neoplasm of unspecified behavior of digestive system; E11.22 Type 2 diabetes mellitus with diabetic chronic kidney disease; K21.9 Gastro-esophageal reflux disease without esophagitis; R79.89 Other specified abnormal findings of blood chemistry; F17.210 Nicotine dependence, cigarettes, uncomplicated; I50.9 Heart failure, unspecified; Z20.822 Contact with and (suspected) exposure to COVID-19; Z80.0 Family history of malignant neoplasm of digestive organs; Z82.3 Family history of stroke; Z82.49 Family history of ischemic heart disease and other diseases of the circulatory system; Z83.3 Family history of diabetes mellitus; Z99.2 Dependence on renal dialysis; Z90.49 Acquired absence of other specified parts of digestive tract; Z79.84 Long term (current) use of oral hypoglycemic drugs
CPT/HCPCS: 36415; 36430; 36558; 71045; 74178; 74181; 76937; 76942; 77001; 80048; 80053; 80076; 81001; 82140; 82728; 83540; 83550; 83605; 83690; 83735; 84443; 85007; 85014; 85018; 85025; 85027; 85610; 85730; 86704; 86706; 86708; 86803; 86850; 86900; 86901; 86920; 87340; 90935; 93005; 96360; 99152; 99291; G0378; J1642; J2001; J2250; J2405; P9047

== ENCOUNTER → 2022-04-13 | Outpatient (CLI) | payer MEDICAID ==
[~2022-04-13] VITALS: Ht 175.3 cm; Wt 57.6 kg
[~2022-04-13] MED LIST changes: +IOHEXOL 300 MG/ML 100ML BOTTLE IJ ONE; +LACT10SO3 PO; +LIDOCAINE 2%HCL (LOCAL ANESTH.) INJ 10ml MDV ONE; +RIFA550T PO
[2022-04-13] MEDS: ALBUMIN 25% 100 ML IV SCH ×2 (13:00→14:00)
== END | disposition home or self-care (01) ==
LOC: XYW 10:57
PROVIDERS: ATTEND Internal Medicine
DX: R18.8 Other ascites (principal); Z82.49 Family history of ischemic heart disease and other diseases of the circulatory system; Z83.3 Family history of diabetes mellitus; Z83.42 Family history of familial hypercholesterolemia; Z80.0 Family history of malignant neoplasm of digestive organs; Z20.822 Contact with and (suspected) exposure to COVID-19
CPT/HCPCS: 36415; 49083; 76700; 83986; 87205; 88104; 88305; 88342; 89051; C1729; 76942; J2001

== ENCOUNTER → 2022-05-05 | Outpatient (CLI) | payer MEDICAID ==
[~2022-05-05] MED LIST changes: -FURO40TA4 PO; +LACT10SO3 PO; +MID10T PO; +RIFA550T PO
[2022-05-05 12:15] LABS: INR 1.22 (0.9-1.15); Partial Thromboplastin Time 26.8 sec (23.6-33.0)
== END | disposition home or self-care (01) ==
LOC: US 11:14
PROVIDERS: ATTEND Internal Medicine
DX: R18.8 Other ascites (principal); R14.0 Abdominal distension (gaseous); F17.200 Nicotine dependence, unspecified, uncomplicated; Z82.49 Family history of ischemic heart disease and other diseases of the circulatory system; Z83.3 Family history of diabetes mellitus; Z83.42 Family history of familial hypercholesterolemia
CPT/HCPCS: 36415; 49083; 76700; 83986; 85610; 85730; 87205; 89051; C1729; 76942

== ENCOUNTER 2022-05-08 21:38 | Inpatient (IN) | payer MEDICAID ==
[~2022-05-08] VITALS: Ht 170.2 cm; Wt 66.4 kg
[~2022-05-08 21:38] MED LIST changes: -MID10T PO
[2022-05-08 23:16] LABS: Basophils # (auto) 0.1 10 ^3/uL (0-0.2); Basophils % (auto) 1.9 % (0.0-2.0); Eosinophils # (auto) 0 10 ^3/uL (0-0.8); Eosinophils % (auto) 0.2 % (0.0-7.0); Hematocrit 32.6 % (41.0-53.0); Hemoglobin 10.6 g/dL (13.5-17.5); Lymphocytes # (auto) 0.3 10 ^3/uL (0.4-5.4); Lymphocytes % (auto) 5.1 % (10.0-50.0); Mean Corpuscular Hemoglobin 26.5 pg (28.0-32.0); Mean Corpuscular Hgb Conc. 32.6 g/dL (32.0-36.0); Mean Corpuscular Volume 81.3 fL (80.0-100.0); Monocytes # (auto) 0.3 10 ^3/uL (0-1.3); Neutrophils # (auto) 5.7 10 ^3/uL (1.6-8.6); Neutrophils % (auto) 87.8 % (37.0-80.0); Red Blood Cells 4.01 10^6/uL (4.5-5.90); Red Cell Distribution Width 22.3 % (11.8-14.3); White Blood Cell 6.5 10^3/uL (4.4-10.8)
[2022-05-08 23:30] LABS: INR 1.19 (0.9-1.15); Partial Thromboplastin Time 26.8 sec (23.6-33.0)
[2022-05-08 23:35] LABS: Albumin 2.5 g/dL (3.4-5.0); BUN/Creatinine Ratio 7.3; Potassium 3.3 mmol/L (3.5-5.1)
[2022-05-09 00:04] LABS: Bilirubin, Total 2.7 mg/dL (0.2-1.0); Total Protein 5.3 g/dL (6.4-8.2)
[2022-05-09] MEDS ORDERED: MID10T PO (00:52)
[2022-05-09] MEDS ORDERED: NITROGLYCERIN 0.4 MG SL TAB SL PRN (01:30)
[2022-05-09] MEDS ORDERED: ACETAMINOPHEN 325 MG TAB PO PRN (01:30)
[2022-05-09] MEDS ORDERED: ONDANSETRON HCL 4 MG/2 ML VIAL IV PRN (01:30)
[2022-05-09] MEDS ORDERED: ZOLPIDEM TARTRATE 5 MG TAB PO PRN (01:30)
[2022-05-09] MEDS ORDERED: LORazepam 0.5 MG TAB PO PRN (01:30)
[2022-05-09] MEDS: MORPHINE SULFATE INJ 2 MG/ml SYRG IV PRN (02:34)
[2022-05-09 05:06] LABS: Basophils # (auto) 0 10 ^3/uL (0-0.2); Basophils % (auto) 0.2 % (0.0-2.0); Eosinophils # (auto) 0 10 ^3/uL (0-0.8); Lymphocytes # (auto) 0.4 10 ^3/uL (0.4-5.4); Mean Corpuscular Hemoglobin 26.6 pg (28.0-32.0); Mean Corpuscular Volume 81.7 fL (80.0-100.0); Monocytes # (auto) 0.3 10 ^3/uL (0-1.3); White Blood Cell 6.2 10^3/uL (4.4-10.8)
[2022-05-09 05:08] LABS: Hematocrit 30.8 % (41.0-53.0); Lymphocytes % (auto) 6.6 % (10.0-50.0); Mean Corpuscular Hgb Conc. 32.5 g/dL (32.0-36.0); Monocytes % (auto) 5.5 % (0.0-12.0); Neutrophils # (auto) 5.4 10 ^3/uL (1.6-8.6); Neutrophils % (auto) 87.7 % (37.0-80.0); Red Blood Cells 3.76 10^6/uL (4.5-5.90)
[2022-05-09 05:22] LABS: Red Cell Distribution Width 22.4 % (11.8-14.3)
[2022-05-09 05:26] LABS: Calcium 7.7 mg/dL (8.5-10.1); Magnesium 2.4 mg/dL (1.6-2.6); Potassium 3.4 mmol/L (3.5-5.1)
[2022-05-09 05:29] LABS: BUN/Creatinine Ratio 7.2
[2022-05-09 08:38] LABS: Urine Bacteria MANY /hpf (None Seen); Urine Blood Negative /uL (Negative); Urine Specific Gravity 1.018 (1.001-1.035); Urine Sperm PRESENT /hpf (None Seen); Urine WBC 32 /hpf (0 - 3)
[2022-05-09] MEDS: CLOPIDOGREL BISULFATE 75 MG TAB PO SCH (10:00)
[2022-05-09] MEDS ORDERED: LISINOPRIL 10 MG TAB PO SCH (10:00)
[2022-05-09] MEDS ORDERED: METOPROLOL TARTRATE 25 MG TAB PO SCH (10:00)
[2022-05-09] MEDS: DOCUSATE SOD 100 MG CAP PO SCH (10:00)
[2022-05-09] MEDS ORDERED: ENOXAPARIN SOD 60 MG/0.6 ML SYRINGE SC SCH (10:00)
[2022-05-09] MEDS: ASPirin 81 mg TAB PO SCH (10:00)
[2022-05-09] MEDS: MIDODRINE HCL 10 MG TAB PO SCH (18:57)
[2022-05-09] MEDS: rifAXIMin 550 MG TAB PO SCH (22:00)
[2022-05-09] MEDS: ATORVASTATIN 20 MG TAB PO SCH (22:00)
[2022-05-09 23:09] VITALS: BP 95/56
[2022-05-10 05:00] VITALS: BP 83/54
[2022-05-10] MEDS: MIDODRINE HCL 10 MG TAB PO SCH ×3 (05:06→17:29)
[2022-05-10] MEDS ORDERED: SODIUM CHL 0.9% 1000 ML BAG XX ONE (07:00)
[2022-05-10 08:23] VITALS: BP 90/60
[2022-05-10] MEDS: ASPirin 81 mg TAB PO SCH (10:18)
[2022-05-10] MEDS: PANTOPRAZOLE 40 MG TAB PO SCH (10:19)
[2022-05-10] MEDS: DOCUSATE SOD 100 MG CAP PO SCH (10:19)
[2022-05-10] MEDS: CLOPIDOGREL BISULFATE 75 MG TAB PO SCH (10:19)
[2022-05-10] MEDS: rifAXIMin 550 MG TAB PO SCH ×2 (10:19→22:38)
[2022-05-10] MEDS ORDERED: REGADENOSON 0.4 MG/5 ML SYRG IV ONE ×2 (11:00→11:15)
[2022-05-10] MEDS: ALBUMIN 25% 100 ML IV SCH ×2 (12:50→14:03)
[2022-05-10 12:58] VITALS: BP 85/56
[2022-05-10 17:00] VITALS: BP 89/52
[2022-05-10] MEDS ORDERED: EPOETIN ALFA-EPBX 4,000 UNIT/ML VIAL SC ONE (21:00)
[2022-05-10 21:28] VITALS: BP 95/66
[2022-05-10] MEDS: ATORVASTATIN 20 MG TAB PO SCH (22:38)
[2022-05-11 04:24] VITALS: BP 88/58
[2022-05-11] MEDS: MIDODRINE HCL 10 MG TAB PO SCH ×3 (05:38→17:11)
[2022-05-11 09:00] VITALS: BP 84/55
[2022-05-11] MEDS: ASPirin 81 mg TAB PO SCH (09:13)
[2022-05-11] MEDS: CLOPIDOGREL BISULFATE 75 MG TAB PO SCH (09:14)
[2022-05-11] MEDS: PANTOPRAZOLE 40 MG TAB PO SCH (09:14)
[2022-05-11] MEDS: DOCUSATE SOD 100 MG CAP PO SCH (09:14)
[2022-05-11] MEDS: rifAXIMin 550 MG TAB PO SCH ×2 (09:14→22:03)
[2022-05-11 12:12] LABS: Basophils # (auto) 0 10 ^3/uL (0-0.2); Eosinophils # (auto) 0 10 ^3/uL (0-0.8); Eosinophils % (auto) 0.1 % (0.0-7.0); Lymphocytes # (auto) 0.3 10 ^3/uL (0.4-5.4); Monocytes # (auto) 0.3 10 ^3/uL (0-1.3)
[2022-05-11 12:15] LABS: Basophils % (auto) 0.2 % (0.0-2.0); Hematocrit 27.2 % (41.0-53.0); Lymphocytes % (auto) 5.8 % (10.0-50.0); Mean Corpuscular Hemoglobin 27.1 pg (28.0-32.0); Mean Corpuscular Hgb Conc. 33.1 g/dL (32.0-36.0); Mean Corpuscular Volume 81.7 fL (80.0-100.0); Monocytes % (auto) 6.4 % (0.0-12.0); Neutrophils # (auto) 4.1 10 ^3/uL (1.6-8.6); Neutrophils % (auto) 87.5 % (37.0-80.0); Red Blood Cells 3.33 10^6/uL (4.5-5.90); White Blood Cell 4.6 10^3/uL (4.4-10.8)
[2022-05-11 12:28] LABS: Red Cell Distribution Width 22.6 % (11.8-14.3)
[2022-05-11 12:52] LABS: INR 1.29 (0.9-1.15); Partial Thromboplastin Time 29.5 sec (23.6-33.0)
[2022-05-11 13:00] VITALS: BP 86/51
[2022-05-11 16:58] VITALS: BP 86/58
[2022-05-11 22:00] VITALS: BP 95/65
[2022-05-11] MEDS: ATORVASTATIN 20 MG TAB PO SCH (22:03)
[2022-05-12 05:00] VITALS: BP 79/50
[2022-05-12] MEDS: MIDODRINE HCL 10 MG TAB PO SCH ×3 (05:59→17:23)
[2022-05-12 06:16] LABS: Basophils # (auto) 0 10 ^3/uL (0-0.2); Eosinophils # (auto) 0 10 ^3/uL (0-0.8); Hemoglobin 9.4 g/dL (13.5-17.5); Lymphocytes # (auto) 0.3 10 ^3/uL (0.4-5.4); Monocytes # (auto) 0.3 10 ^3/uL (0-1.3); Neutrophils # (auto) 4.1 10 ^3/uL (1.6-8.6); Neutrophils % (auto) 87.1 % (37.0-80.0); White Blood Cell 4.7 10^3/uL (4.4-10.8)
[2022-05-12 06:17] LABS: Basophils % (auto) 0.2 % (0.0-2.0); Eosinophils % (auto) 0.1 % (0.0-7.0); Mean Corpuscular Hemoglobin 27.5 pg (28.0-32.0); Mean Corpuscular Hgb Conc. 33.5 g/dL (32.0-36.0); Mean Corpuscular Volume 82.1 fL (80.0-100.0); Monocytes % (auto) 6.6 % (0.0-12.0); Red Blood Cells 3.41 10^6/uL (4.5-5.90)
[2022-05-12 06:23] LABS: Calcium 7.8 mg/dL (8.5-10.1); Potassium 3.9 mmol/L (3.5-5.1)
[2022-05-12 06:27] LABS: BUN/Creatinine Ratio 7.2
[2022-05-12 06:40] LABS: Red Cell Distribution Width 23.5 % (11.8-14.3)
[2022-05-12] MEDS: ASPirin 81 mg TAB PO SCH (08:55)
[2022-05-12] MEDS: CLOPIDOGREL BISULFATE 75 MG TAB PO SCH (08:55)
[2022-05-12] MEDS: rifAXIMin 550 MG TAB PO SCH ×2 (08:55→21:25)
[2022-05-12] MEDS: PANTOPRAZOLE 40 MG TAB PO SCH (08:56)
[2022-05-12] MEDS: DOCUSATE SOD 100 MG CAP PO SCH (08:56)
[2022-05-12 09:08] VITALS: BP 98/64
[2022-05-12 12:20] VITALS: BP 90/69
[2022-05-12 16:42] VITALS: BP 97/57
[2022-05-12] MEDS: ATORVASTATIN 20 MG TAB PO SCH (21:26)
[2022-05-12 22:00] VITALS: BP 100/70
[2022-05-12] MEDS: MORPHINE SULFATE INJ 2 MG/ml SYRG IV PRN (23:27)
[2022-05-13 05:00] VITALS: BP 89/57
[2022-05-13 05:12] LABS: Basophils # (auto) 0 10 ^3/uL (0-0.2); Basophils % (auto) 0.2 % (0.0-2.0); Eosinophils # (auto) 0 10 ^3/uL (0-0.8); Eosinophils % (auto) 0.3 % (0.0-7.0); Hematocrit 29.7 % (41.0-53.0); Hemoglobin 9.9 g/dL (13.5-17.5); Lymphocytes # (auto) 0.3 10 ^3/uL (0.4-5.4); Mean Corpuscular Hemoglobin 27.2 pg (28.0-32.0); Mean Corpuscular Hgb Conc. 33.4 g/dL (32.0-36.0); Mean Corpuscular Volume 81.3 fL (80.0-100.0); Monocytes # (auto) 0.2 10 ^3/uL (0-1.3); Monocytes % (auto) 8.5 % (0.0-12.0); Neutrophils # (auto) 2.2 10 ^3/uL (1.6-8.6); Nucleated Red Blood Cells % 0.4 %; Red Blood Cells 3.66 10^6/uL (4.5-5.90); White Blood Cell 2.8 10^3/uL (4.4-10.8)
[2022-05-13 05:24] LABS: Calcium 7.8 mg/dL (8.5-10.1); Potassium 4.2 mmol/L (3.5-5.1)
[2022-05-13 05:26] LABS: BUN/Creatinine Ratio 7.3
[2022-05-13] MEDS: MIDODRINE HCL 10 MG TAB PO SCH ×3 (05:37→18:14)
[2022-05-13] MEDS ORDERED: SODIUM CHL 0.9% 1000 ML BAG XX ONE (07:00)
[2022-05-13 09:00] VITALS: BP 84/48
[2022-05-13] MEDS ORDERED: ONDA-144 PO (10:18)
[2022-05-13] MEDS: PANTOPRAZOLE 40 MG TAB PO SCH (10:41)
[2022-05-13] MEDS: DOCUSATE SOD 100 MG CAP PO SCH (10:41)
[2022-05-13] MEDS: CLOPIDOGREL BISULFATE 75 MG TAB PO SCH (10:41)
[2022-05-13] MEDS: rifAXIMin 550 MG TAB PO SCH (10:41)
[2022-05-13] MEDS: ASPirin 81 mg TAB PO SCH (10:41)
[2022-05-13] MEDS ORDERED: LIDOCAINE 2%HCL (LOCAL ANESTH.) INJ 10ml MDV ONE (10:49)
[2022-05-13] MEDS ORDERED: ALBUMIN 25% 100 ML IV ONE (11:14)
[2022-05-13 12:46] VITALS: BP 74/44
[2022-05-13] MEDS ORDERED: CLOP75TA70 PO (16:54)
[2022-05-13] MEDS ORDERED: ATOR20TA50 PO (16:54)
[2022-05-13] MEDS ORDERED: ASPI-325 PO (16:54)
[2022-05-13 17:00] VITALS: BP 86/57
[2022-05-13 17:33] VITALS: BP 86/57
== END 2022-05-13 20:38 | disposition hospice, home (50) | DRG 279 ==
LOC: ER 21:38 → EDUNIT# 21:38 → EDBD 21:38 → TELE 05-09 01:17 → TELE-WESTW 05-09 21:40
PROVIDERS: ADMIT Hospitalist; ATTEND Internal Medicine
PROC: 5A1D70Z Performance of Urinary Filtration, Intermittent, Less than 6 Hours Per Day (ICD-10-PCS; principal; 2022-05-10)
DX: K72.00 Acute and subacute hepatic failure without coma (principal); E43 Unspecified severe protein-calorie malnutrition; N18.6 End stage renal disease; D69.6 Thrombocytopenia, unspecified; I95.89 Other hypotension; R18.8 Other ascites; E87.1 Hypo-osmolality and hyponatremia; D63.1 Anemia in chronic kidney disease; R16.0 Hepatomegaly, not elsewhere classified; R07.9 Chest pain, unspecified; D64.9 Anemia, unspecified; E87.6 Hypokalemia; F17.210 Nicotine dependence, cigarettes, uncomplicated; Z20.822 Contact with and (suspected) exposure to COVID-19; Z68.22 Body mass index [BMI] 22.0-22.9, adult; K74.60 Unspecified cirrhosis of liver; K21.9 Gastro-esophageal reflux disease without esophagitis; I50.9 Heart failure, unspecified; Z79.899 Other long term (current) drug therapy; Z80.0 Family history of malignant neoplasm of digestive organs; Z82.3 Family history of stroke; Z82.49 Family history of ischemic heart disease and other diseases of the circulatory system; Z83.3 Family history of diabetes mellitus; Z87.442 Personal history of urinary calculi; Z90.49 Acquired absence of other specified parts of digestive tract; Z99.2 Dependence on renal dialysis; Z86.19 Personal history of other infectious and parasitic diseases
CPT/HCPCS: 36415; 71045; 74176; 80048; 80053; 80061; 81001; 82140; 83605; 83735; 84484; 85025; 85610; 85730; 87040; 90935; 93005; 96374; 99291; G0378; J1642; J2001; J2405; P9047